=== PATIENT | male | born 1945 | race Caucasian/White ===

== ENCOUNTER → 2016-08-31 | Day surgery (SDC) | payer BC ==
[~2016-08-31] MED LIST: ALEVE220 M1 PO; ARMOUR THYROID60 M1 PO; CELEBREX PO; CO Q-10400 MG PO; DHEA50 MG PO; ECOTRIN325 MG PO; HYDREA500 MG PO; NATURAL VITA400 UNI2 PO; NEXIUM PO; PRINIVIL40 MG PO; TESTOSTERONE75 GM; VITAMIN D310000 UNI1 PO; VITAMIN D35000 UNIT PO
--- NOTE | ~2016-08-31 | OR ---
Unit #: [id number] #: [id number] Patient: MARION APONTE [id number] [address] [place], [place] [address] [id number] O MR#: [id number] NAME: MARION APONTE ROOM: Date of Procedure: 08/31/2016 Admission Date: 08/31/2016 Surgeon: Quirino Velez M.D. : 1945 Attending Physician: Quirino Velez M.D. OPERATIVE REPORT PREOPERATIVE DIAGNOSES 1. Degenerative lumbar disk disease. 2. Lumbar radiculopathy. POSTOPERATIVE DIAGNOSES 1. Degenerative lumbar disk disease. 2. Lumbar radiculopathy. PROCEDURE PERFORMED Transforaminal epidural steroid injection with fluoroscopic guidance for needle localization. INDICATIONS FOR PROCEDURE The patient is a 70-year-old male with return of right lower extremity pain due to known right L4 nerve root effacement at the right L4-L5 neural foramina due to multiple factors. He has been treated with p.r.n. single transforaminal injections with very good results. Last injection was completed 5 months ago. He did well until just recently, where he had spasm on his back with pain resulted in re-flare of this radicular issues. Based on good response he gotten in the past, his pathology, and symptomatology, we are going to proceed with a repeat transforaminal injection. DESCRIPTION OF PROCEDURE The patient was placed in a prone position. Standard monitors were applied. Sterile prep and drape of the lumbosacral area was performed. The skin then to the right of midline at the L4-L5 level was localized with 1% lidocaine. An 18-gauge Firefly [employer] needle was advanced with biplanar fluoroscopic guidance to bring the needle tip within the right L4-L5 neural foramina. The patient had mild paresthesia 2 or 3 times, which quickly abated with maneuvering the needle. After confirming proper needle tip position with biplanar fluoroscopy and radiographic contrast, a dose of 80 mg of Depo-Medrol and 1 mL of 0.25% bupivacaine were deposited. The patient tolerated the procedure otherwise well and was discharged to the recovery room in stable condition. Dictated by... Quirino Velez M.D. P/modl Unit #: [id number] #: [id number] Patient: FAYMARION Ulloa TD: 08/31/2016 22:34 JOB #: [id number] OPERATIVE REPORT X Quirino Velez MD X PROCEDURE OPERATIVE NOTE
== END | disposition home or self-care (01) ==
LOC: CCSC 07:26
DX: M51.16 Intervertebral disc disorders with radiculopathy, lumbar region (principal); K21.9 Gastro-esophageal reflux disease without esophagitis; I10 Essential (primary) hypertension
CPT/HCPCS: J1040; J2250